=== PATIENT | female | born 1945 | race Caucasian/White ===

== ENCOUNTER → 2022-04-06 | Day surgery (SDC) | payer BC, MEDICARE ==
[2022-04-05 11:00] LABS: BASOPHILS # (AUTO) 0.1 (0.0-0.1); BASOPHILS % 1.1 % (0.0-1.0); EOSINOPHILS # (AUTO) 0.1 (0.0-0.4); EOSINOPHILS % 2.6 % (0.0-6.0); HEMATOCRIT 43.9 % (34.2-44.1); LYMPHOCYTES # (AUTO) 2.2 (1.0-3.2); LYMPHOCYTES % 39.7 % (18.0-39.1); MEAN CORPUSCULAR HEMOGLOBIN 32.2 pg (28-32); MEAN CORPUSCULAR HGB CONC 31.9 g/dL (31-35); MEAN CORPUSCULAR VOLUME 100.9 fL (81-99); MONOCYTES # (AUTO) 0.5 (0.2-0.8); MONOCYTES % 8.2 % (4.4-11.3); NEUTROPHILS # (AUTO) 2.6 (2.1-6.9); PLATELET COUNT 263 x10e3/uL (140-360); RED BLOOD COUNT 4.35 x10e6/uL (3.6-5.1); RED CELL DISTRIBUTION WIDTH 12.7 % (11.7-14.4)
[~2022-04-06] MED LIST: CITRACAL + D E1 EACH PO; COQ-10100 MG PO; CRESTOR10 MG PO; CRESTOR5 MG PO; CYMBALTA30 MG PO; FENOFIBRATE134 MG; FLONASE16 GM NS; LIDOCAINE HCL 2% LOCAL INJ 5 ML SDV VIAL INJ ONE; METFORMIN HCL500 MG PO; METOPROLOL; METOPROLOL SUCC25 MG PO; MOVE FREE PO; MULTI-VITAMIN1 EACH PO; NAMENDA10 MG PO; OMEPRAZOLE20 M1 PO; OSTEO BI-FLEX1 EAC2; POTASSIUM CHLO10 ME1 PO; POTASSIUM GLUCONATE PO; POVIDONE IODINE 0.05% 0.05 % ML PO ONE; PREMPRO 0.625-1 EAC1 PO; PROPOFOL IV EMULSION 10 MG/ML 20 ML VIAL ONE; TURMERIC538 MG; VITAMIN C PO; VITAMIN C1000 MG PO
[2022-04-06 12:25] VITALS: BP 149/79
== END | disposition home or self-care (01) ==
LOC: OR 08:50
PROVIDERS: ATTEND Internal Medicine Gastroenterology
DX: Z12.11 Encounter for screening for malignant neoplasm of colon (principal); Z86.010 Personal history of colon polyps; K31.7 Polyp of stomach and duodenum; K29.00 Acute gastritis without bleeding; K29.50 Unspecified chronic gastritis without bleeding; K44.9 Diaphragmatic hernia without obstruction or gangrene; K21.9 Gastro-esophageal reflux disease without esophagitis; K64.8 Other hemorrhoids; Z71.3 Dietary counseling and surveillance; E11.40 Type 2 diabetes mellitus with diabetic neuropathy, unspecified; I10 Essential (primary) hypertension; H91.90 Unspecified hearing loss, unspecified ear; E66.9 Obesity, unspecified; F41.9 Anxiety disorder, unspecified; Z88.0 Allergy status to penicillin; Z88.1 Allergy status to other antibiotic agents; Z91.048 Other nonmedicinal substance allergy status; Z01.810 Encounter for preprocedural cardiovascular examination; Z01.812 Encounter for preprocedural laboratory examination; Z20.822 Contact with and (suspected) exposure to COVID-19; Z79.84 Long term (current) use of oral hypoglycemic drugs; Z79.899 Other long term (current) drug therapy; Z68.33 Body mass index [BMI] 33.0-33.9, adult; Z80.0 Family history of malignant neoplasm of digestive organs
CPT/HCPCS: 43239; 43251; G0105; 36415; 45378; 85025; 88305; 88312; 88342; 93005; J2001

== ENCOUNTER 2024-07-06 20:41 | Inpatient (IN) | payer MEDICARE ==
[~2024-07-06] VITALS: Ht 172.7 cm; Wt 101.2 kg
[~2024-07-06 20:41] MED LIST changes: -FENOFIBRATE134 MG; +FENOFIBRATE134 MG PO; -LIDOCAINE HCL 2% LOCAL INJ 5 ML SDV VIAL INJ ONE; -OSTEO BI-FLEX1 EAC2; +OSTEO BI-FLEX1 EAC2 PO; -POVIDONE IODINE 0.05% 0.05 % ML PO ONE; -PROPOFOL IV EMULSION 10 MG/ML 20 ML VIAL ONE
[2024-07-06] MEDS: SODIUM CHLORIDE 0.9% 1000ML 1,000 ML IV ONE ×2 (21:18→23:11)
[2024-07-06] MEDS: ACETAMINOPHEN 325 MG TAB PO ONE (21:18)
[2024-07-06 21:36] LABS: BASOPHILS # (AUTO) 0.1 (0.0-0.1); BASOPHILS % 0.9 % (0.0-1.0); EOSINOPHILS # (AUTO) 0.1 (0.0-0.4); EOSINOPHILS % 0.9 % (0.0-6.0); HEMOGLOBIN 11.9 g/dL (12.0-16.0); LYMPHOCYTES # (AUTO) 0.8 (1.0-3.2); LYMPHOCYTES % 14.1 % (18.0-39.1); MEAN CORPUSCULAR HEMOGLOBIN 32.8 pg (28-32); MEAN CORPUSCULAR HGB CONC 32.2 g/dL (31-35); MEAN CORPUSCULAR VOLUME 101.9 fL (81-99); MONOCYTES # (AUTO) 0.6 (0.2-0.8); MONOCYTES % 10.6 % (4.4-11.3); NEUTROPHILS # (AUTO) 3.9 (2.1-6.9); NEUTROPHILS % 72.6 % (38.7-80.0); PLATELET COUNT 175 x10e3/uL (140-360); RED BLOOD COUNT 3.63 x10e6/uL (3.6-5.1); RED CELL DISTRIBUTION WIDTH 12.5 % (11.7-14.4)
[2024-07-06 21:43] LABS: ALBUMIN 3.3 g/dL (3.5-5.0); ALBUMIN/GLOBULIN RATIO 1.3 (0.8-2.0); ANION GAP 12.2 mmol/L (8-16); BILIRUBIN,TOTAL 0.3 mg/dL (0.2-1.2); CALCIUM 8.1 mg/dL (8.4-10.2); CREATININE, SERUM 0.91 mg/dL (0.57-1.11); POTASSIUM 4.2 mmol/L (3.5-5.1); TOTAL PROTEIN 5.9 g/dL (6.5-8.1)
[2024-07-06 22:44] LABS: TROPONIN I 0.01 ng/mL (0-0.300)
[2024-07-06 22:46] VITALS: PULSE 75; RESP 17; O2SAT 98
[2024-07-06 23:13] LABS: BILIRUBIN,URINE NEGATIVE (NEGATIVE); CLARITY,URINE CLEAR (CLEAR); COLOR,URINE YELLOW (YELLOW); GLUCOSE, URINE NEGATIVE (NEGATIVE); KETONES,URINE NEGATIVE (NEGATIVE); LEUKOCYTE ESTERASE ,URINE TRACE (NEGATIVE); NITRITE,URINE NEGATIVE (NEGATIVE); PH,URINE 7 (5 - 7); PROTEIN,URINE DIPSTICK NEGATIVE (NEGATIVE); URINE UROBILINOGEN 0.2 mg/dL (0.2 - 1)
[2024-07-06 23:32] LABS: WBC,URINE (MAN) 21-50 /HPF (0-5)
[2024-07-06 23:33] LABS: BACTERIA,URINE MODERATE /HPF; EPITHELIAL CELLS,URINE FEW /LPF; RENAL EPITHELIAL CELLS,URINE FEW
[2024-07-07] MEDS ORDERED: ONDANSETRON HCL INJ 2MG/ML 2ML 2 MG/ML VIAL IV PRN (00:15)
[2024-07-07] MEDS: SODIUM CHLORIDE 0.9% 1000ML 1,000 ML IV SCH (03:15)
[2024-07-07] MEDS ORDERED: HYDRALAZINE HCL 20 MG/ML VIAL IV PRN (04:00)
[2024-07-07] MEDS ORDERED: POLYETHYLENE GLYCOL 3350 17 GM PACK PO PRN (04:00)
[2024-07-07] MEDS ORDERED: NEURONTIN300 MG PO (07:51)
[2024-07-07] MEDS: DOCUSATE SODIUM 100 MG CAP PO SCH (08:36)
[2024-07-07] MEDS: FAMOTIDINE 20 MG TAB PO SCH (08:37)
[2024-07-07 09:52] VITALS: PULSE 75; RESP 17; O2SAT 98
[2024-07-07 11:47] VITALS: PULSE 78; RESP 18; O2SAT 98
[2024-07-07 13:27] VITALS: TEMP 97.7
[2024-07-07 17:54] VITALS: PULSE 90; RESP 18
[2024-07-07 19:30] VITALS: PULSE 90; RESP 18; O2SAT 100
[2024-07-07 20:00] VITALS: BP 159/69; PULSE 103; PULSE 90; RESP 20; TEMP 98.6; O2SAT 100
[2024-07-07] MEDS: GABAPENTIN 300 MG CAP PO SCH (22:27)
[2024-07-07] MEDS: METOPROLOL SUCCINATE 25 MG TAB XL PO ONE (22:27)
[2024-07-07] MEDS: ACETAMINOPHEN 325 MG TAB PO PRN (22:44)
[2024-07-08] VITALS (9 sets, daily range): BP systolic 117–138; BP diastolic 62–109; PULSE 70–98; RESP 16–20; TEMP 97.7–98.8; O2SAT 92–100
[2024-07-08 05:30] LABS: BASOPHILS % 0.8 % (0.0-1.0); EOSINOPHILS # (AUTO) 0.1 (0.0-0.4); EOSINOPHILS % 1.7 % (0.0-6.0); HEMATOCRIT 34.1 % (34.2-44.1); LYMPHOCYTES # (AUTO) 2.3 (1.0-3.2); LYMPHOCYTES % 43.6 % (18.0-39.1); MEAN CORPUSCULAR HEMOGLOBIN 32.6 pg (28-32); MEAN CORPUSCULAR HGB CONC 32.3 g/dL (31-35); MEAN CORPUSCULAR VOLUME 101.2 fL (81-99); MONOCYTES # (AUTO) 0.6 (0.2-0.8); MONOCYTES % 10.8 % (4.4-11.3); NEUTROPHILS # (AUTO) 2.3 (2.1-6.9); NEUTROPHILS % 42.7 % (38.7-80.0); PLATELET COUNT 164 x10e3/uL (140-360); RED BLOOD COUNT 3.37 x10e6/uL (3.6-5.1); RED CELL DISTRIBUTION WIDTH 12.6 % (11.7-14.4); WHITE BLOOD COUNT 5.27 x10e3/uL (4.8-10.8)
[2024-07-08 06:05] LABS: ALBUMIN/GLOBULIN RATIO 1.1 (0.8-2.0); ANION GAP 11.7 mmol/L (8-16); BILIRUBIN,TOTAL 0.3 mg/dL (0.2-1.2); CALCIUM 8.3 mg/dL (8.4-10.2); POTASSIUM 3.7 mmol/L (3.5-5.1); TOTAL PROTEIN 5.8 g/dL (6.5-8.1)
[2024-07-08 06:22] LABS: CHOL/HDL RATIO 3.6 (3.0-3.6); MAGNESIUM 1.8 MG/DL (1.3-2.1); PHOSPHORUS 3.1 MG/DL (2.3-4.7)
[2024-07-08 06:44] LABS: FREE T4 (FREE THYROXINE) 0.89 ng/dL (0.8-1.8); THYROID STIMULATING HORMONE 3.405 uIU/mL (0.350-4.940)
[2024-07-08] MEDS: BOSWELLIA SERRA PO SCH (09:00)
[2024-07-08] MEDS: D3 PO SCH (09:00)
[2024-07-08] MEDS: NON-FORMULARY MEDICATION (Fenofibrate,Micronized (Fenofibrate) 134 MG) PO SCH (09:00)
[2024-07-08] MEDS: NON-FORMULARY MEDICATION (Ubidecarenone (Coq-10) 100 MG) PO SCH (09:00)
[2024-07-08] MEDS: GLUCOSAMINE PO SCH (09:00)
[2024-07-08] MEDS: MULTIVITAMINS/MINERALS TAB PO SCH (09:09)
[2024-07-08] MEDS: PANTOPRAZOLE SOD 40 MG TABEC PO SCH (09:10)
[2024-07-08] MEDS: METOPROLOL SUCCINATE 25 MG TAB XL PO SCH (09:10)
[2024-07-08] MEDS: OYST-CAL-D 500MG TABLET PO SCH (09:11)
[2024-07-08] MEDS: MEMANTINE 10 MG TAB PO SCH (09:11)
[2024-07-08] MEDS: POTASSIUM CHLORIDE 10MEQ EA PO SCH (09:11)
[2024-07-08] MEDS: ASCORBIC ACID 500 MG TAB PO SCH (09:11)
[2024-07-08] MEDS: METFORMIN HCL 500 MG TAB PO SCH (09:12)
[2024-07-08] MEDS: MUPIROCIN 2% OINT 22 GM TUBE TOP SCH (18:19)
[2024-07-09] VITALS (11 sets, daily range): BP systolic 109–172; BP diastolic 55–82; PULSE 75–88; RESP 18–19; TEMP 97.7–98.6; O2SAT 96–100
[2024-07-10] VITALS (12 sets, daily range): BP systolic 122–174; BP diastolic 71–92; PULSE 65–94; RESP 16–20; TEMP 97.5–98.3; O2SAT 95–100
[2024-07-10 06:32] LABS: BASOPHILS % 0.6 % (0.0-1.0); EOSINOPHILS # (AUTO) 0.5 (0.0-0.4); EOSINOPHILS % 7.1 % (0.0-6.0); HEMOGLOBIN 12.4 g/dL (12.0-16.0); LYMPHOCYTES # (AUTO) 2.2 (1.0-3.2); LYMPHOCYTES % 34.4 % (18.0-39.1); MEAN CORPUSCULAR HEMOGLOBIN 31.8 pg (28-32); MEAN CORPUSCULAR HGB CONC 31.8 g/dL (31-35); MONOCYTES # (AUTO) 0.6 (0.2-0.8); MONOCYTES % 9.3 % (4.4-11.3); NEUTROPHILS # (AUTO) 3.1 (2.1-6.9); NEUTROPHILS % 48.4 % (38.7-80.0); PLATELET COUNT 203 x10e3/uL (140-360); RED CELL DISTRIBUTION WIDTH 12.1 % (11.7-14.4); WHITE BLOOD COUNT 6.34 x10e3/uL (4.8-10.8)
[2024-07-10 07:05] LABS: ANION GAP 13.7 mmol/L (8-16); CALCIUM 9.4 mg/dL (8.4-10.2); CREATININE, SERUM 0.94 mg/dL (0.57-1.11); POTASSIUM 3.7 mmol/L (3.5-5.1)
[2024-07-10] MEDS: DOCUSATE SODIUM 100 MG CAP PO SCH (10:23)
[2024-07-11] VITALS (11 sets, daily range): BP systolic 120–143; BP diastolic 47–93; PULSE 76–89; RESP 18–20; TEMP 97.5–98.2; O2SAT 98–100
[2024-07-12] VITALS (12 sets, daily range): BP systolic 102–138; BP diastolic 58–85; PULSE 49–85; RESP 17–20; TEMP 97.8–98.2; O2SAT 93–100
[2024-07-13] VITALS (11 sets, daily range): BP systolic 121–141; BP diastolic 55–80; PULSE 64–80; RESP 17–18; TEMP 97.3–98.7; O2SAT 95–100
[2024-07-13] MEDS: MECLIZINE HCL 12.5 MG TAB PO ONE (15:42)
[2024-07-14] VITALS (9 sets, daily range): BP systolic 112–144; BP diastolic 61–80; PULSE 71–88; RESP 16–19; TEMP 97.4–98.5; O2SAT 97–100
[2024-07-14] MEDS: MECLIZINE HCL 12.5 MG TAB PO PRN (09:51)
[2024-07-15] VITALS (9 sets, daily range): BP systolic 118–135; BP diastolic 56–66; PULSE 57–79; RESP 16–18; TEMP 97.2–98.8; O2SAT 95–100
[2024-07-16] VITALS (8 sets, daily range): BP systolic 108–145; BP diastolic 54–73; PULSE 55–83; RESP 16–20; TEMP 97.6–98.8; O2SAT 95–99
[2024-07-16] MEDS ORDERED: MAGNESIUM OXID400 MG PO (11:51)
[2024-07-16] MEDS ORDERED: MECLIZINE HCL12.5 MG PO (19:32)
[2024-07-17] VITALS: BP 122/63; PULSE 75; RESP 18; TEMP 98.1; O2SAT 96
[2024-07-17 04:00] VITALS: BP 120/58; PULSE 81; RESP 18; TEMP 97.7; O2SAT 98
[2024-07-17 09:58] VITALS: BP 144/68; PULSE 85; RESP 17; TEMP 97.9; O2SAT 95
[2024-07-17 10:26] VITALS: BP 144/68; PULSE 85; RESP 17; TEMP 97.9; O2SAT 95
== END 2024-07-17 12:53 | disposition home health service (06) | DRG 872 ==
LOC: ER 20:45 → ERHOLD 07-07 00:13 → MED/SURG3 07-07 18:33 → OBSVTOIN 07-08 15:08
PROVIDERS: ADMIT Internal Medicine; ATTEND Internal Medicine
PROC: 3E0333Z Introduction of Anti-inflammatory into Peripheral Vein, Percutaneous Approach (ICD-10-PCS; principal; 2024-07-06)
DX: A41.01 Sepsis due to Methicillin susceptible Staphylococcus aureus (principal); E87.20 Acidosis, unspecified; N39.0 Urinary tract infection, site not specified; I95.1 Orthostatic hypotension; E11.65 Type 2 diabetes mellitus with hyperglycemia; E11.40 Type 2 diabetes mellitus with diabetic neuropathy, unspecified; E86.0 Dehydration; I10 Essential (primary) hypertension; I49.3 Ventricular premature depolarization; R00.0 Tachycardia, unspecified; M79.7 Fibromyalgia; E78.1 Pure hyperglyceridemia; S80.212A Abrasion, left knee, initial encounter; S40.012A Contusion of left shoulder, initial encounter; T50.B95A Adverse effect of other viral vaccines, initial encounter; W18.30XA Fall on same level, unspecified, initial encounter; Y92.017 Garden or yard in single-family (private) house as the place of occurrence of the external cause; Z79.84 Long term (current) use of oral hypoglycemic drugs; Z88.0 Allergy status to penicillin; Z88.1 Allergy status to other antibiotic agents; Z88.6 Allergy status to analgesic agent; Z83.3 Family history of diabetes mellitus
CPT/HCPCS: 36415; 70450; 70544; 70551; 71045; 80048; 80053; 80061; 81001; 82550; 82948; 83036; 83605; 83735; 84100; 84439; 84443; 84484; 85025; 87040; 87086; 87186; 93005; 93306; 93880; 94799; 99252; 99285; G0378; J0696; J7030